=== PATIENT | male | born 1995 | race Caucasian/White ===

== ENCOUNTER → 2016-03-19 | Outpatient (CLI) | payer OTHER ==
--- NOTE | 2016-03-19 09:53 | DX ---
Right hand, 3 views. History: Second finger injury. Comparison examination:none available Findings: No fracture identified. Normal alignment. Joint spaces are maintained. Soft tissues judy ear unremarkable. Impression: Negative right hand radiographs.
== END ==
LOC: BRMIMAGING 08:54
PROVIDERS: ATTEND Family Medicine
DX: M79.641 Pain in right hand (principal)
CPT/HCPCS: 73130-PO